=== PATIENT | female | born 2005 | race Hispanic/Latino ===

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

== ENCOUNTER 2023-08-31 03:53 | Emergency (ER) | payer MEDICAID ==
[~2023-08-31] VITALS: Ht 147.3 cm; Wt 41.3 kg
[2023-08-31 04:27] LABS: RAPID GROUP A STREP negative (NEGATIVE)
[2023-08-31 04:28] LABS: SARS-CoV-2, RNA, NAAT NEGATIVE SARS CoV-2 (NEGATIVE)
[2023-08-31 04:37] LABS: INFLUENZA TYPE A Negative For Type A (NEGATIVE); INFLUENZA TYPE B Negative For Type B (NEGATIVE)
[2023-08-31 05:40] LABS: APPEARANCE,URINE CLEAR (CLEAR); BILIRUBIN,URINE NEGATIVE (NEGATIVE); COLOR,URINE YELLOW (YELLOW); GLUCOSE, URINE (UA) NEGATIVE (NEGATIVE); KETONES,URINE 5 mg/dL (NEGATIVE); LEUKOCYTE ESTERASE ,URINE NEGATIVE Leu/uL (NEGATIVE); NITRATE,URINE NEGATIVE (NEGATIVE); OCCULT BLOOD,URINE NEGATIVE (NEGATIVE); PH,URINE 6.5 (5.0-8.0); PROTEIN,URINE 20 mg/dL (NEGATIVE); UROBILINOGEN,URINE 0.2 mg/dL (0.2-1.0)
[2023-08-31 05:44] LABS: BACTERIA,URINE RARE /HPF (None Seen); MUCUS,URINE FEW LPF (None Seen); SQUAMOUS EPITHELIAL CELL,UR MOD /HPF (0-2)
[2023-08-31] MEDS ORDERED: IBUP-1493 PO (06:03)
[2023-08-31] MEDS ORDERED: PRED20TA3 PO (06:03)
[2023-08-31 06:06] VITALS: BP 114/50; PULSE 86; RESP 18; O2SAT 96
== END 2023-08-31 06:15 | disposition home or self-care (01) ==
LOC: EDH 03:53
DX: B34.9 Viral infection, unspecified (principal); E86.0 Dehydration; F84.0 Autistic disorder; Z20.822 Contact with and (suspected) exposure to COVID-19
CPT/HCPCS: 99285; 71045; 87635; 87880; 87804 ×2; 81001 ×2; C9803